=== PATIENT | female | born 1965 | race Caucasian/White ===

== ENCOUNTER 2025-07-05 14:07 | Emergency (ER) | payer OTHER, SELFPAY ==
[2025-07-05 14:08] VITALS: BP 145/91
[2025-07-05 14:35] VITALS: BP 128/80
[2025-07-05 14:38] VITALS: BMI 33.2
[2025-07-05 15:05] LABS: Hematocrit 44.9 % (37.0-47.0); Hemoglobin 15.4 g/dL (12.0-16.0); Mean Corp Hgb Conc. 34.3 g/dL (33.0-37.0); Mean Corpuscular Volume 93.2 fL (81.0-99.0); Nucleated Red Blood Cells % 0 %; Platelet Count 282 10^3/uL (130-400); Red Cell Dist. Width 12.3 % (11.5-14.5)
--- NOTE | 2025-07-05 15:05 | ED.GENMED ---
History of Present Illness
General
Chief Complaint: Dizziness
Time Seen by Provider: 07/05/25 14:34
History of Present Illness
History of Present Illness:
60-year-old female with history of Crohn's disease, not on any maintenance medications, presenting for midsternal chest discomfort. Patient reports symptoms intermittently for the past few days, however when she woke up at 630 this morning, felt
pain in her midsternal chest lasted longer than typical. She does note that she has history of indigestion and GERD so she was not sure if it was related to that. Does report that her symptoms in the past few days more associated with food or
beverage, and did have some candy late last night. Denies known cardiac history. Does report family history of cardiac disease. Also reports some lightheadedness and dizziness since resolved, does note history of BPPV. She reports some residual
lightheadedness. Denies fever. Denies visual changes. Denies focal weakness or sensory deficits. Denies additional acute medical complaints
Phy Exam
Physical Exam
Physical Exam:
General: Well-appearing, no clinical signs of dehydration, nontoxic and in no acute distress
HEENT: protecting airway
Neck: appears supple
CV: Normal heart rate, regular rhythm
Resp: No accessory muscle use, no increased work of breathing, lungs clear to auscultation bilaterally
Abd: Soft and non-distended, no tenderness to palpation
Extremities: No deformities, no swelling
Neuro: alert, no focal neurologic deficit
: deferred
Rectal: deferred
Psych: Normal affect
Skin: Intact
Course
Orders/Labs/Results
Orders:
Orders
07/05/25 14:12
ECG [Electrocardiogram (*1)] Urgent
Reason for Study: Chest Pain
EKG- Treatment ONCE
07/05/25 14:48
CMP [Comprehensive Metabolic Panel] Urgent
Complete Blood Count/With Diff Urgent
Troponin I Urgent
07/05/25 14:54
0.9% Sodium Chloride 1000 ml [Nss] 1,000 ml IV BOLUS
Abnormal Lab Results
07/05/25
14:48
MCH 32.0 H pg
(27.0-31.0)
Absolute Neuts (auto) 6.7 H 10^3/uL
(1.4-6.5)
Chloride 108 H mmol/L
(98-107)
BUN 19 H mg/dl
(7-17)
Glucose 137 H mg/dl
(70-99)
ALT 43 H U/L
(0-35)
07/05/25 14:48
07/05/25 14:48
Vital Signs
Initial and Last Documented VS:
Initial Vital Signs
Temp Pulse Resp BP Pulse Ox
97.9 F 99 18 145/91 96
07/05/25 14:08 07/05/25 14:08 07/05/25 14:08 07/05/25 14:08 07/05/25 14:08
Last Documented Vital Signs
Temp Pulse Resp BP Pulse Ox
97.9 F 76 18 118/77 94
07/05/25 14:08 07/05/25 16:00 07/05/25 16:00 07/05/25 16:00 07/05/25 16:00
MDM/Problems Addressed
MDM/Problems Addressed:
60-year-old female with history of Crohn's presenting for midsternal chest discomfort. Vital signs on arrival are normal.
On exam patient is resting comfortably, no acute distress or discomfort. Notes that her symptoms have subsided. Symptoms started this morning, does report that she had some atypical fluids last night with history of GERD/reflux. Ultimately do
suspect gastric component to symptoms. EKG obtained on arrival, nonischemic. Will screen with laboratory analysis including troponin. Does note some residual lightheadedness. No focal neurologic deficits or concern for central neurologic
process. Will treat with IV fluids and reassess.
16:15 - Labs are unremarkable including negative troponin. Patient heart score. Does remain improved. Ultimately feel stable for discharge with close and will follow-up with her doctor. Diet for GERD discussed. Return precautions discussed and
patient verbalized understanding
*Pulse Oximetry
SaO2: 96
Oxygen Mode of Delivery: Room air
Patient hypoxic: no
*EKG
Interpreted by ED Provider?: Yes
EKG Intrepretation Date: 07/05/25
EKG Intrepretation Time: 15:10
Interpretation: normal
Heart Rate: 93
Rate: normal
Rhythm: sinus
[place]: normal axis
Interval: normal interval
QRS Pattern: normal QRS
Ischemia: no ischemia
*Critical Care Note
Total Time (30-74mins, 75-104mins- exclusive of procedures): Not Applicable
ED Attending Note
-
Portions of this chart may have been created with voice recognition software.� Occasional wrong word or��sound alike� substitutions may have occurred due to the inherent limitations of voice recognition software.
Discharge Plan
Departure
Referrals:
Pcp Selection Not Required, [Other]
Sofia Jeffers MD [Family Provider, Family Practice]
Interventions
Interventions:
*Risk Screen - Suicide Last Done: 07/05/25 14:08
*General Assessment Last Done: 07/05/25 14:38
*Neglect/Abuse Screening Last Done: 07/05/25 14:38
*ED- Fall Risk Assessment Last Done: 07/05/25 14:38
*ED COVID-19 Vaccine History Last Done: 07/05/25 14:38
ED- Neurological Assessment Last Done: 07/05/25 14:38
Discharge Date and Time
Print Language: SPANISH
[2025-07-05] MEDS: NSS 1000 IV (15:06)
[2025-07-05 15:09] VITALS: BP 113/84
[2025-07-05 15:10] LABS: ALT (SGPT) 43 U/L (0-35); AST (SGOT) 27 U/L (14-36); Albumin 4.6 g/dl (3.5-5.0); Alkaline Phosphatase 115 U/L (38-126); Blood Urea Nitrogen 19 mg/dl (7-17); Calcium 9.4 mg/dl (8.4-10.2); Carbon Dioxide 25 mmol/L (22-30); Chloride 108 mmol/L (98-107); Estimated Creatinine Clearance 81 ml/min; Glucose 137 mg/dl (70-99); Potassium 4.1 mmol/L (3.5-5.1); Sodium 142 mmol/L (135-145); Total Protein 7.5 g/dl (6.3-8.2); eGFR > 60.00
[2025-07-05 15:21] LABS: Troponin I < 0.012 ng/ml
[2025-07-05 16:00] VITALS: BP 118/77
== END 2025-07-05 16:26 | disposition home or self-care (01) ==
LOC: EMR 14:07
PROVIDERS: EMERGENCY PHYSICIAN Student in an Organized Health Care Education/Training Program; FAMILY PHYSICIAN Family Medicine
DX: R07.89 Other chest pain (principal); R42 Dizziness and giddiness; K21.9 Gastro-esophageal reflux disease without esophagitis
CPT/HCPCS: 96360; 99284; 80053; 84484; 85025; 93005